=== PATIENT | male | born 1965 | race Caucasian/White ===

== ENCOUNTER 2020-04-21 00:22 | Outpatient (CLI) | payer BC, SELFPAY ==
[2020-04-21 18:06] LABS: SARS-CoV-2 RNA PCR Negative
== END 2020-04-21 00:23 | disposition home or self-care (01) ==
LOC: ANHCOVIDDT 00:22
PROVIDERS: PCP Family Medicine; Visit Provider Internal Medicine Gastroenterology
DX: Z01.812 Encounter for preprocedural laboratory examination (principal); Z20.828 Contact with and (suspected) exposure to other viral communicable diseases
CPT/HCPCS: 87635; C9803; U0003

== ENCOUNTER 2020-04-23 00:45 | Day surgery (SDC) | payer BC, SELFPAY ==
[2020-04-16 12:37] VITALS: BMI 22.4
[2020-04-23 08:06] VITALS: BP 103/61; PULSE 64; RESP 14; TEMP 36.6; O2SAT 100; BMI 22.8
[2020-04-23] MEDS: LACTATED RINGERS 1,000 ML 150 ML IV CONT (08:12)
--- NOTE | 2020-04-23 08:28 | P.PNAN_ITS ---
Anes - Initial Pre Proc Eval Procedure: Operation Date: 04/23/20 09:00 Proposed Procedures p Colonoscopy - Rei Dawn MD Date/Time: 04/23/20 08:28 Surgeon: Rei Dawn MD Pre Op Diagnosis: Abnormal CT and RLQ Pain Patient Data Age: 54 Gender: M Height: 1.83 m Weight: 76.4 kg Last Vital Signs Temp 36.6 C 04/23/20 08:06 Pulse 64 04/23/20 08:06 Resp 14 04/23/20 08:06 BP 103/61 04/23/20 08:06 Pulse Ox 100 04/23/20 08:06 Allergies Allergy/AdvReac Type Severity Reaction Status Date / Time Bleach (Sodium Hypochlorite) Allergy Other Verified 04/23/20 08:04 Home Medications Medication Instructions Recorded Confirmed Type ibuprofen 200 mg PO QAM PRN 04/16/20 04/16/20 History Patient hx anesthesia problems: none Family hx anesthesia problems: none [facility] Past Medical History Medical History (Updated 04/23/20 @ 07:49 by Lucien Gooden DO) Anemia Asthma Surgical History Surgical History (Updated 04/23/20 @ 07:49 by Lucien Gooden DO) History of neck surgery Social History Social History (Updated 04/23/20 @ 08:28 by Lucien Gooden DO) Smoking status: Current every day smoker Anes - Eval Final PreProcedure Day of Procedure 04/23/20 08:28 Patient weight: normal Heart: regular rate and rhythm Lungs: clear to auscultation and normal air movement Airway: Mallampati scale class II Neurological: alert and oriented Last oral intake: >/= 8 hours ASA classification: II Emergent: no Anesthetic plan: proceed Anesthesia type and monitoring: general GIVS and standard monitoring Informed Consent: The patient's anesthetic plan and its attendant risks and benefits were discussed with the patient/family/POA. Questions were solicited and answers provided to the satisfaction of the patient/family/POA.
--- NOTE | 2020-04-23 09:06 | WPDGICN ---
Assessment and Plan Assessment and plan (1) Right sided abdominal pain: Code(s): R10.9 - Unspecified abdominal pain Status: Acute Assessment and Plan: Patient reports intermittent right-sided abdominal pain. Recent CT scan suggests abnormality on the left side of the colon to evaluate more thoroughly colonoscopy will be performed. High-fiber diet is advised in the antrum. Further recommendations will be given after colonoscopy. (2) Abnormal CT scan, colon: Code(s): R93.3 - Abnormal findings on diagnostic imaging of other parts of digestive tract Status: Acute GI Consult Note Consult date/time: 04/23/20 09:06 HPI: [place] is a 54 year old male Seen in evaluation at the request of Dr. Arian Urbano. Patient reports a 1 year history of intermittent abdominal pain. Symptoms occur in the right side of his abdomen. Appear to fluctuate in intensity he states there is no relation to diet. No relation to bowel habits. Denies any fever. He denies any bleeding. He reports having 3 bowel movements a day in this been fairly routine a regular over quite some time. Family history is noncontributory. His father had prostate and bladder cancer. His mother had pancreatic cancer. Patient states his own weight has remained stable. Recent CT scan suggested abnormality on the left side of his abdomen. Review of Systems Review of Systems: All systems reviewed & are unremarkable except as noted in HPI and below PMFSH Past Medical History Medical History Anemia Asthma Surgical History Surgical History History of neck surgery Social History Social History Smoking status: Current every day smoker Meds Home Medications and Allergies Home Medications Medication Instructions Recorded Confirmed Type ibuprofen 200 mg PO QAM PRN 04/16/20 04/16/20 History Allergies Allergy/AdvReac Type Severity Reaction Status Date / Time Bleach (Sodium Hypochlorite) Allergy Other Verified 04/23/20 08:04 Vital Signs Vital Signs - 24 hr 04/23/20 08:06 Temperature 36.6 C Pulse Rate 64 Respiratory Rate 14 Blood Pressure 103/61 Pulse Oximetry 100 Exam Narrative: Exam Narrative: Physical exam reveals patient to be alert. Vital signs are stable. HEENT exam unremarkable. Lungs are clear to auscultation and percussion. Heart is without murmur. Abdomen bowel sounds are present soft nontender with no organomegaly. No masses are noted. He locates pain to the right lower quadrant.
[2020-04-23 09:38] VITALS: BP 122/66; PULSE 65; RESP 18; O2SAT 100
[2020-04-23 09:48] VITALS: PULSE 70; RESP 18; O2SAT 99
[2020-04-23 09:58] VITALS: BP 102/71; PULSE 64; RESP 18; O2SAT 99
== END 2020-04-23 10:27 | disposition home or self-care (01) ==
PROVIDERS: PCP Family Medicine; Visit Provider Internal Medicine Gastroenterology
PROC: 0DJD8ZZ Inspection of Lower Intestinal Tract, Via Natural or Artificial Opening Endoscopic (ICD-10-PCS; CPT 45378; principal; 2020-04-23 09:00)
DX: K63.5 Polyp of colon (principal); K57.30 Diverticulosis of large intestine without perforation or abscess without bleeding; K64.8 Other hemorrhoids; D64.9 Anemia, unspecified; J45.909 Unspecified asthma, uncomplicated; F17.210 Nicotine dependence, cigarettes, uncomplicated
CPT/HCPCS: 45385; 88305; J2704; J7120

== ENCOUNTER 2023-09-13 08:02 | Emergency (ER) | payer OTHER, BC, SELFPAY ==
--- NOTE | ~2023-09-13 | XR_ITS ---
EXAMINATION: XR ankle LT min 3V DATE: 09/13/2023 08:33 INDICATION: Medial and lateral left ankle pain post twisting injury TECHNIQUE: Anteroposterior, oblique, mortise, and lateral views of the left ankle were obtained. COMPARISON: None. FINDINGS: Bone alignment is normal. No fracture. Joint spaces are normal. Soft tissues are unremarkable with no ankle joint effusion. IMPRESSION: 1. Negative left ankle radiographs. Reviewed, dictated and finalized at location [facility].
--- NOTE | 2023-09-13 08:23 | ED.LOWEXIN ---
HPI - Extremity Injury (Lower) General Chief Complaint: Extremity Injury, Lower Stated Complaint: lt ankle injury Source: patient Mode of arrival: ambulatory Limitations: no limitations History of Present Illness HPI Narrative: 57 y/o male presents for complaint of left ankle pain worsening after injury that occurred 1 week ago while at work. States he was tangled in plastic when he twisted the ankle and landed wrong on the heel. Since then he has continued to work, climb ladders and walking etc. But reports the swelling and pain have been getting worse, and reports decreased ROM. Pain is to both sides of the ankle and posterior heel area. Taking ibuprofen nightly for hx migraines, without much improvement in ankle pain. Also applying ice to the site. Denies numbness, tingling or weakness. Related Data Home Medications Medication Instructions Recorded Confirmed No Home Medications 09/13/23 09/13/23 Allergies Allergy/AdvReac Type Severity Reaction Status Date / Time Bleach (Sodium Hypochlorite) Allergy Other Verified 04/23/20 08:04 Review of Systems Review of Systems: CONSTITUTIONAL: Denies body aches, fever, chills EYES: Denies visual changes ENT: Denies rhinorrhea, congestion CARDIOVASCULAR: Denies chest pain, palpitations, or edema. RESPIRATORY: Denies cough or dyspnea. GASTROINTESTINAL: Denies abdominal pain, nausea, vomiting, or diarrhea. SKIN: Denies rash, itching, or wounds. MUSCULOSKELETAL: Denies back pain, or myalgia. NEUROLOGIC: Denies headache, numbness, tingling, or weakness. All systems reviewed & are unremarkable except as noted in HPI and below PMFSH Past Medical History Medical History Anemia Asthma Surgical History Surgical History History of neck surgery Social History Social History Smoking status: Current every day smoker Comments At time of signature, I have reviewed and agree with nursing past medical, surgical, social and family history unless otherwise noted. Please see nursing chart for further information. There is no relevant family history pertinent to the presenting complaint Exam Narrative: GENERAL: Well-appearing, well-nourished, and in no acute distress. HEAD: Normocephalic. EYES: PERRLA, conjunctivae clear NECK: Supple. CHEST: Speaks in full sentences. No respiratory distress. HEART: Regular rate and rhythm. Normal and equal peripheral pulses. EXTREMITIES: Left ankle has limited range of motion with flexion/extension/rotation, due to pain with movement. Mild tenderness with palpation to malleolus and posterior ankle, minimal swelling posterior medial malleolus. No erythema or ecchymosis. Left ankle has normal strength and sensation, No open wounds, or obvious deformity; alignment normal, pulse palpable and equal bilaterally, skin warm, dry, pink; Right foot appears pale in comparison. Capillary refill less than 3 seconds. Slow gait. SKIN: Warm, dry, no rash. NEURO: Alert and oriented x3. PSYCH: Normal mood and affect Extrem: Ankle/foot/toe images: 1. area of reported pain Course Course Emergency Course: Patient is aware of diagnosis, understands and agrees to treatment plan. Anticipatory guidance given. Patient agrees to follow-up as directed and is aware of reasons to seek care at the emergency department. Portions of this record may have been created with voice recognition software Level of Care: Express Care Visit Vital Signs Vital signs: Vital Signs Temperature 97.6 F 09/13/23 08:24 Pulse Rate 77 09/13/23 08:24 Respiratory Rate 18 09/13/23 08:24 Blood Pressure 145/77 H 09/13/23 08:24 Pulse Oximetry 100 09/13/23 08:24 Oxygen Delivery Room Air 09/13/23 08:24 Temperature 97.6 F 09/13/23 08:24 Pulse Rate 77 09/13/23 08:24 Respiratory Rate 1
[2023-09-13 08:24] VITALS: BP 145/77; PULSE 77; RESP 18; TEMP 36.4; O2SAT 100
== END 2023-09-13 09:17 | disposition home or self-care (01) ==
PROVIDERS: Emergency Provider Nurse Practitioner Family; PCP Family Medicine
DX: M25.572 Pain in left ankle and joints of left foot (principal); J45.909 Unspecified asthma, uncomplicated; F17.200 Nicotine dependence, unspecified, uncomplicated
CPT/HCPCS: 73610; 99213; G0463

== ENCOUNTER 2023-11-18 09:10 | Emergency (ER) | payer BC, SELFPAY ==
--- NOTE | ~2023-11-18 | CT_ITS ---
CT ankle LT w con DATE: 11/18/2023 11:37 INDICATION: Ankle burning pain. Injury a few months ago. TECHNIQUE: Axial images through the ankle and foot. Sagittal and coronal reconstructions. COMPARISON: None FINDINGS: No fracture or dislocation ankle or disruption of the ankle mortise. No bone destruction is evident. IMPRESSION: No significant abnormality Reviewed, dictated and finalized at [facility]. Reviewed, dictated and finalized at location A. [employer]IST IMPRESSION: No significant abnormality
--- NOTE | ~2023-11-18 | XR_ITS ---
XR ankle LT min 3V DATE: 11/18/2023 09:29 INDICATION: Injury. Pain and swelling of left ankle. TECHNIQUE: 4 views COMPARISON: None FINDINGS: No fracture or dislocation of the ankle or disruption of the ankle mortise. No periosteal r eaction or bone destruction. No soft tissue swelling is detected. IMPRESSION: No significant abnormality of the left ankle Reviewed, dictated and finalized at location A. [facility]
[2023-11-18 09:10] VITALS: BP 131/91; PULSE 73; RESP 18; TEMP 36.6; O2SAT 100
[2023-11-18 10:27] LABS: Eosinophils Absolute Auto 0.1 K/mm3 (0-0.3); Eosinophils Percent Auto 2.3 % (0-4.4); Hematocrit 41.4 % (42.0-52.0); Hemoglobin 13.4 g/dL (14.0-18.0); Immature Granulocyte Absolute 0.01 K/mm3 (0.00-0.031); Immature Granulocyte Percent A 0.3 % (0-0.5); Lymphocytes Absolute Auto 1.17 K/mm3 (0.9-3.2); Lymphocytes Percent Auto 29.9 % (18.3-44.2); Mean Corpuscular HGB Conc 32.4 g/dl (32-36); Mean Corpuscular Hemoglobin 29.5 pg (26-34); Mean Corpuscular Volume 91.2 fl (80-100); Mean Platelet Volume 8.9 fl (7.4-10.4); Monocytes Absolute Auto 0.5 K/mm3 (0.1-0.6); Monocytes Percent Auto 12.8 % (2.6-8.5); Neutrophils Absolute Auto 2.1 K/mm3 (1.3-6.7); Neutrophils Percent Auto 53.7 % (45.5-73.1); Platelet Count Result 256 k/mm3 (150-375); Red Blood Count 4.54 M/mm3 (4.6-6.20); Red Cell Distribution Width 12.5 % (11.5-14.5); White Blood Count 3.9 K/mm3 (4.5-10.0)
[2023-11-18 10:36] LABS: Prothrombin Time 13.9 Seconds (11.1-14.7)
[2023-11-18 10:37] LABS: Partial Thromboplastin Time 32.3 SECONDS (22.3-36.8)
[2023-11-18 10:38] LABS: Alanine Aminotransferase 17 U/L (6-50); Albumin Level 4.1 g/dL (3.5-5.1); Alkaline Phosphatase 71 U/L (38-126); Anion Gap 7 mmol/L (8-16); Aspartate Amino Transferase 27 U/L (17-59); Bilirubin,Total 0.4 mg/dL (0.2-1.3); Blood Urea Nitrogen 3 mg/dL (9-20); Calcium 9.2 mg/dL (8.4-10.2); Carbon Dioxide 28 mmol/L (22-30); Chloride 97 mmol/L (98-107); Estimated CRCL calculation 113 ml/min; Estimated Glomerular Filt Rate > 60; Glucose 89 mg/dL (65-110); Potassium 4.8 mmol/L (3.4-5.0); Sodium 132 mmol/L (137-145)
[2023-11-18 11:00] VITALS: BP 148/70; PULSE 80; RESP 16; TEMP 36.6; O2SAT 100
[2023-11-18 12:00] VITALS: BP 136/80; PULSE 76; RESP 16; TEMP 36.7; O2SAT 100
--- NOTE | 2023-11-18 12:24 | ED.LOWEXIN ---
HPI - Extremity Injury (Lower) General Chief Complaint: Extremity Injury, Lower Stated Complaint: left ankle pain Time Seen by Provider: 11/18/23 09:51 Source: patient, RN notes reviewed and old records reviewed Mode of arrival: ambulatory Limitations: no limitations History of Present Illness HPI Narrative: This is a 58 year old male who presents for evaluation of left ankle pain. PAtient states he injured his left ankle 3 months ago when it got caught in plastic. He states he has been having constant ankle pain to both sides and posteriorly. He was evaluted at [facility] initially with xray and no acute injury found. He states he has followed with his PCP and they have not found any cause for his pain. He has been taking ibuprofen for his pain. He reports he has continued daily pain and he states it is swollen. He states on Sunday he has been having difficulty moving his foot. He denies numbness or tingling. He denies knee pain or back pain. He denies nausea, vomiting or fever. He came because he wants answers for his pain and is not concerned about moving his foot. Related Data Home Medications Medication Instructions Recorded Confirmed No Home Medications 09/13/23 09/13/23 Allergies Allergy/AdvReac Type Severity Reaction Status Date / Time Bleach (Sodium Hypochlorite) Allergy Other Verified 04/23/20 08:04 Review of Systems Review of Systems: All systems reviewed & are unremarkable except as noted in HPI and below PMFSH Past Medical History Medical History Anemia Asthma Surgical History Surgical History History of neck surgery Social History Social History Smoking status: Current every day smoker Exam Const: General: no acute distress and alert Nutritional Appearance: well nourished Orientation/consciousness: patient oriented x3 Limitations: no limitations HENMT: Head: normal to inspection Eyes: EOM: EOMs intact bilaterally Resp: Effort & Inspection: normal respiratory effort Skin: General skin exam: normal color Rashes: no rashes Wounds: no wounds Neuro: General: patient oriented x3, moves all extremities and CN's II-XI intact bilaterally Extrem: General: no clubbing, cyanosis or edema and no pedal edema Other: triphasic dopplerable left DP and PT pulse, no swelling to ankle or patella. no deformity. Patient will not dorsiflex or plantar flexion. Sensation intact, no calf tenderness, patella is intact, no erythema Psych: Mental Status: mental status grossly normal Affect: normal affect Attitude: cooperative Course Reevaluation(s) Reevaluation #1: I discussed with patient results. We discussed that he will need follow up with neuro/PCP. I Discussed starting steroids but he declined. He states he is not concerned about movement of his ankle. He is just tired of the pain. I stressed the he may need MRI and nerve conduction studies so it is important for him to follow up . Date: 11/18/23 Time: 12:31 Consultations Consultation #1: I Spoke with ortho Dr. Avalos about patient case. we discussed possible peroneal injury but patient history not consistent. PATient denies back pain or other issues to make it seem like spinal issue Date: 11/18/23 Time: 12:37 Vital Signs Vital signs: Vital Signs Temperature 97.8 F 11/18/23 09:10 Pulse Rate 73 11/18/23 09:10 Respiratory Rate 18 11/18/23 09:10 Blood Pressure 131/91 H 11/18/23 09:10 Pulse Oximetry 100 11/18/23 09:10 Oxygen Delivery Room Air 11/18/23 09:10 Temperature 98.0 F 11/18/23 13:00 Pulse Rate 68 11/18/23 13:00 Respiratory Rate 16 11/18/23 13:00 Blood Pressure 134/76 11/18/23 13:00 Pulse Oximetry 98 11/18/23 13:00 Oxygen Delivery Room Air 11/18/23 09:10 MDM - Extremity Injury (Lower) Different
[2023-11-18 13:00] VITALS: BP 134/76; PULSE 68; RESP 16; TEMP 36.7; O2SAT 98
== END 2023-11-18 13:19 | disposition home or self-care (01) ==
PROVIDERS: Emergency Provider General Practice; PCP Family Medicine
DX: M25.572 Pain in left ankle and joints of left foot (principal); G89.29 Other chronic pain
CPT/HCPCS: 36415; 73610; 73701; 80053; 85025; 85610; 85730; 99284; Q9967